=== PATIENT | male | born 1960 | race Caucasian/White ===

== ENCOUNTER 2016-06-23 14:55 | Emergency (ER) | payer OTHER ==
[~2016-06-23] VITALS: Ht 185.4 cm; Wt 90.7 kg
[2016-06-23] MEDS ORDERED: AMLODIPINE BES2.5 M1 PO (16:31)
[2016-06-23] MEDS ORDERED: METFORMIN HCL1000 M1 PO (16:31)
[2016-06-23] MEDS ORDERED: TRIAMTERENE-HC1 EAC1 PO (16:31)
[2016-06-23] MEDS ORDERED: TAMSULOSIN HCL0.4 M1 PO (16:31)
[2016-06-23] MEDS ORDERED: GLIMEPIRIDE1 M1 PO (16:32)
[2016-06-23] MEDS ORDERED: PRAVASTATIN SOD80 M2 PO (16:32)
[2016-06-23] MEDS ORDERED: DAILY MULTIPLE1 EACH PO (16:33)
--- NOTE | 2016-06-23 16:54 | ED GENERAL ADULT ---
History of Present Illness General Chief Complaint: General Adult Stated Complaint: PT STATES "NO TASTE SOUR TASTE" Source: patient, old records Exam Limitations: no limitations Vital Signs & Intake/Output Vital Signs & Intake/Output Vital Signs Date Time Temp Pulse Resp B/P Pulse O2 O2 Flow FiO2 Ox Delivery Rate 06/23 1514 98.1 99 16 148/91 98 Room Air Allergies Coded Allergies: Penicillins (Severe, RASH 06/23/16) lisinopril (Severe, RASH 06/23/16) sumatriptan (From IMITREX) (Severe, BLADDER PAIN 06/23/16) Reconcile Medications Amlodipine Besylate 2.5 MG TABLET 1 TAB PO DAILY BP (Reported) Glimepiride 1 MG TABLET 1 TAB PO DAILY DM (Reported) Metformin HCl 1,000 MG TABLET 1 TAB PO BID DM (Reported) Multivitamin (Daily Multiple Vitamin) 1 EACH TABLET 1 TAB PO DAILY SUPPLEMENT (Reported) Pravastatin Sodium 80 MG TABLET 1 TAB PO DAILY CHOLESTEROL (Reported) Tamsulosin HCl 0.4 MG CAP.ER.24H 1 CAP PO DAILY ENLARGED PROSTATE (Reported) Triamterene/Hydrochlorothiazid (Triamterene-Hctz 37.5-25 MG Tb) 37.5 MG-25 MG TABLET 1 TAB PO DAILY BP (Reported) Triage Note: 55 Y/O MALE C/O "SOUR TASTE IN MY MOUTH" X 3 DAYS; STATES HE BEGAN DIABETES" 3 DAYS AGO AND STATES HE IMMEDIATELY HAD A LOSS OF TASTE/SOUR TASTE IN MOUTH. DENIES PAIN. HAS SINCE STOPPED TAKING THE SUPPLEMENT BUT CONTINUS TO HAVE SYMPTOMS. WAS SENT BY WALK IN - "FOR TOXICILOGY STUDIES". Triage Nurses Notes Reviewed? yes Onset: 3 days Duration: day(s):, constant, continues in ED Timing: recent history Injury Environment: home Severity: severe No Modifying Factors: none HPI: 8 days ago patient started glucoforte for blood sugar control. 5 days later he lost the sense of taste with acid flavor in his mouth and stop the medication. The symptoms persist. He denies fever chills nausea vomiting diarrhea abdominal pain reflux chest pain shortness of breath headache dysuria rash bleeding. Past History Travel History Traveled to [place] past 21 day No Medical History Any Pertinent Medical History? see below for history Neurological: NONE EENT: NONE Cardiovascular: hypertension, HIGH CHOLESTEROL Respiratory: NONE Gastrointestinal: NONE Hepatic: NONE Renal: NONE Musculoskeletal: NONE Psychiatric: NONE Endocrine: diabetes Blood Disorders: NONE Cancer(s): NONE FLOOR REFINISHER/Reproductive: NONE Surgical History Surgical History: non-contributory Psychosocial History What is your primary language Ugandan Tobacco Use: Current Not Daily Family History Hx Contributory? No Review of Systems Review of Systems Constitutional: Reports: no symptoms. EENTM: Reports: see HPI. Respiratory: Reports: no symptoms. Cardiovascular: Reports: no symptoms. GI: Reports: no symptoms. Genitourinary: Reports: no symptoms. Musculoskeletal: Reports: no symptoms. Skin: Reports: no symptoms. Neurological/Psychological: Reports: no symptoms. Hematologic/Endocrine: Reports: no symptoms. Immunologic/Allergic: Reports: no symptoms. All Other Systems: Reviewed and Negative Physical Exam Physical Exam General Appearance: well developed/nourished, alert, awake, anxious, mild distress Head: atraumatic, normal appearance Eyes: Bilateral: normal appearance, PERRL, EOMI. Ears, Nose, Throat: normal pharynx, normal ENT inspection Neck: normal inspection, supple, full range of motion, no midline tenderness Respiratory: normal breath sounds, chest non-tender, no respiratory distress, quiet respiration, lungs clear Cardiovascular: regular rate/rhythm, normal peripheral pulses, norml femoral pulses equa Peripheral Pulses: 4+ carotid (R), 4+ carotid (L) Gastrointestinal: normal bowel sounds, soft, non-tender, no organomegaly Back: normal inspection, normal range of motion Extremities: normal inspection, normal capillary refill, normal range of motion, no edema Neurologic/Psych: no motor/sensory deficits, awake, alert, oriented x 3, nursing techn II- XII nml as tested Reflexes: 2+: bicep (R), bicep (L). Skin: intact, normal color, warm/dry Lymphatic: no anterior cervical shlomo Core Measures ACS in differential dx? No CVA/TIA Diagnosis: No Severe Sepsis Present: No Septic Shock Present: No Progress Differential Diagnoses I considered the following diagnoses in my evaluation of the patient: Medication reaction medication synergy reflux Plan of Care: Stop glucoforte Initial ED EKG: none Departure Departure Time of Disposition: 1652 Disposition: HOME OR SELF CARE Condition: Stable Clinical Impression Primary Impression: Loss of perception for taste Referrals: MIKE GARRIDO,ARIS Montiel Call for ENT follow up if no return of taste in 5-10 days. KENZIE GARRIDO,SHARIF Parekh (PCP/Family) Additional Instructions: Stop your diabetic supplement glucoforte Consider stopping Amlodipine Departure Forms: Customer Survey General Discharge Information Critical Care Note Critical Care Note Critical Care Time: non-applicable
== END 2016-06-23 17:51 ==
LOC: ERH 14:55
DX: R43.9 Unspecified disturbances of smell and taste (principal)
CPT/HCPCS: 99282